=== PATIENT | male | born 1960 | race Caucasian/White ===

== ENCOUNTER 2016-10-04 10:31 | Emergency (ER) | payer OTHER ==
[~2016-10-04] VITALS: Ht 177.8 cm; Wt 147.7 kg
[~2016-10-04 10:31] MED LIST: ALBU90AE IH; FERR-83 PO; FLUN25SP NS; FLUT50DI IH; FURO40TA4 PO; LISI40TA PO; LOV30 SUBQ; MONT10TA23 PO; NORT10CA PO; POTA20TA16 PO; WARF1TAB6 PO
[2016-10-04 10:35] VITALS: BP 154/91; PULSE 90; RESP 20; O2SAT 99
--- NOTE | 2016-10-04 10:45 | ED.REPORT ---
HPI-Extremity Problem Lower Date of Service Oct 04, 2016 ED Provider: History of Present Illness: knot and pain started thursday on left lower leg , hot to touch, PE in lung and [facility]VT[facility] [place]. 12/20 pain, denies injury Nursing Notes Stated Complaint: LEFT LEG HAS A SWOLLEN KNOT, HOT Chief Complaint: General Complaint Nursing Notes Reviewed: Yes Allergies: Coded Allergies: No Known Allergies (Verified Allergy, Unknown, 05/16/16) Scheduled Enoxaparin (Lovenox) 30 Mg/0.3 Ml Syringe 30 MG SUBQ DAILY Ferrous Sulfate (Ferrous Sulfate) 325 Mg Tablet 325 MG PO DAILYWD Flunisolide (Flunisolide) 25 Ml [place] 25 ML NS BID Fluticasone Propionate (Flovent Diskus) 50 Mcg Disk.w.dev 1 PUFF IH BID Fluticasone Propionate (Flovent Diskus) 50 Mcg Disk.w.dev 1 PUFF IH BID Furosemide (Furosemide) 40 Mg Tablet 40 MG PO DAILY Lisinopril (Lisinopril) 40 Mg Tablet 40 MG PO DAILY Montelukast (Montelukast) 10 Mg Tablet 10 MG PO HS Nortriptyline (Nortriptyline) 10 Mg Capsule 10 MG PO HS Potassium Chloride (Potassium Chloride) 20 Meq Tab.er.prt 20 MEQ PO DAILY TAKE WITH FOOD Warfarin Sodium (Warfarin Sodium) 1 Mg Tablet 2 MG PO DIRECTED Warfarin Sodium (Warfarin Sodium) 1 Mg Tablet 1 MG PO DIRECTED Scheduled PRN Albuterol Sulfate (Proair Respiclick) 90 Mcg Aer.pow.ba 2 PUFFS IH 4-6HR PRN PRN For Shortness of Breath General Time Seen by MD: 10:44 Chief Complaint Leg injury left Hx Obtained From: Patient Onset Occurred: 3 days ago Past Medical History Past Medical History Notes: That for pulmonary embolism 10/04/2015, mentation complicated by septic shock, she was intubated in the see CDU CT angiogram at that visit revealed bilateral multilobar pulmonary emboli Seen in ED 11/15 INR supratherapeutic at 3.4, CT angio negative but was also suboptimal contrast administration. Patient empirically treated with Zithromax, blood cultures no growth to date. Past Medical History Pulmonary emboli, multilobar September 2015 (admission, complicated by septic shock) history DVT 2008 Obesity Hypertension History gastric bypass Anemia: Please note latter day blood product use) Past Surgical History Gastric bypass x2 Reports: Cholecystectomy, Inguinal hernia repair Smoking History Former Smoker (quit 20 years ago) Social History Alcohol Use: Denies alcohol use Drug Use: Denies drug use Occupation lives by self with 3 cats, works at [employer] 10/04/2016 Ambulatory Status Independent Review of Systems Basic Review of Systems Eyes: Vision NL, No discharge : No dysuria, No frequency Psychiatric: Normal thought content Physical Exam Initial Vital Signs Vital Signs (First) Date Time Temp Pulse Resp B/P Pulse Ox O2 Delivery O2 Flow Rate FiO2 10/04/16 10:35 36.9 90 20 154/91 99 Room Air Initial VS: Reviewed, Vital signs normal General/Constitutional: Well-developed, Well-nourished Head / Eyes: Atraumatic, Normocephalic, PERRL ENT: Mucous membranes moist, Conjunctiva normal, No scleral icterus Neck: Supple, Non-tender, Full range of motion Respiratory: Breath sounds normal, Clear to auscultation, No respiratory distress Cardiovascular: Regular rate & rhythm, Heart sounds normal, Intact distal pulses Abdomen / GI: Soft, Non-tender, No guarding, No rebound, No distention Back: No CVA tenderness Lymphatic: No lymphadenopathy Upper Extremities: Vascular intact, Neuro intact, No swelling, No tenderness Skin: Warm, Dry, No cyanosis Neurologic: Alert, Oriented, Nonfocal Psychiatric: Mood/affect normal, Behavior normal, Normal thought content Lower Extremity / Pelvis / MS: Atraumatic, Inspection NL, Full range of motion left lower leg has edema with erthyma that is warm to the touch General/Constitutional: Awake, Alert, No acute distress, Well appearing, Well developed, Well hydrated, Well nourished, Cooperative, Not toxic appearing Appearance / Presentation: Positive: Obese, morbidly Respiratory / Chest: Atraumatic, Breath sounds NL, Breath sounds = bilat, No respiratory distress, No rales, No rhonchi, No wheezing Cardiovascular: Heart rate NL, Regular rhythm, Heart sounds NL, No gallop Interpretation & Diagnostics Interpretation & Diagnostics: INDICATIONS: DVT in left leg, new sob on xaralteo ? failure TECHNIQUE: After the administration of intravenous contrast, 2 mm thick sections acquired from the pulmonary apices to the posterior costophrenic angles. 3-dimensional maximum intensity projection (MIP) coronal and sagittal reformats were then acquired through the thorax. For radiation dose reduction, the following was used: automated exposure control, adjustment of mA and/or kV according to patient size. COMPARISON: [facility], CT, CT ANGIO CHEST PE, 09/14/2015, 20:23. [facility], CT, CT ANGIO CHEST PE, 11/19/2015, 16:42. FINDINGS: Image quality: There is mild motion artifact. Pulmonary arteries: Pulmonary arteries are normal in size, and demonstrate no intraluminal filling defects to suggest central pulmonary embolism. Evaluation of distal branches slightly limited by motion artifact. Lungs and pleura: There is small 5 mm right lower lobe pulmonary nodule which appears unchanged compared to the prior studies. Mild dependent atelectasis is present bilaterally. There are also calcified nodules in the left lower lobe consistent with old granulomas. No pleural effusions or pneumothorax. Central and peripheral airways are patent. Mediastinum: Heart size is normal, without pericardial effusion. No mediastinal or hilar adenopathy by size criteria. There are calcified mediastinal and hilar lymph nodes consistent with old granulomatous disease. Thoracic aorta is normal in caliber and enhancement. Esophagus is normal in caliber, with a small hiatal hernia. Bones and chest wall: No suspicious bony lesions. Ribs and thoracic spine appear intact throughout. Thyroid gland is partially visualized. No axillary or supraclavicular adenopathy. Abdomen: Visualized upper abdomen demonstrates numerous splenic calcifications consistent with old granulomatous disease. The gallbladder is surgically absent. There is atrophy of the pancreas. IMPRESSION: 1. No evidence of central pulmonary embolism. 2. Sequelae of old granulomatous disease as described. 3. Small 5 mm right lower lobe pulmonary nodule is stable compared to prior studies dating back to 09/14/15. Consider followup in 12 months to demonstrate 2 year stability. Dictated by: Román Tim M.D. on 10/04/2016 at 13:25 Approved by: Román Tim M.D. on 10/04/2016 at 13:30 Lab Results Interpretation Result Diagram: 10/04/16 1115 10/04/16 1115 Test 10/04/16 11:15 White Blood Count 7.7th/mm3 (3.8-10.1) Red Blood Count 4.69mil/mm3 (4.40-5.80) Hemoglobin 14.7g/dL (13.8-17.2) Hematocrit 43.9% (41.0-50.0) Mean Corpuscular Volume 93.6fL (81-100) Mean Corpuscular Hemoglobin 31.3pg (27.0-35.0) Mean Corpuscular Hemoglobin Concent 33.5% (32.0-37.0) Red Cell Distribution Width 13.5% (12.3-15.4) Platelet Count 277bil/L (150-400) Neutrophils (%) (Auto) 65.6% (40-74) Lymphocytes (%) (Auto) 19.0% (14-46) Monocytes (%) (Auto) 11.8% (4-12) Eosinophils (%) (Auto) 3.1% (0-5) Basophils (%) (Auto) 0.4% (0-3) Sodium Level 137mEq/L (134-144) Potassium Level 4.5mEq/L (3.5-5.2) Chloride Level 101mEq/L (97-108) Carbon Dioxide Level 22mmol/L (18-29) Blood Urea Nitrogen 22mg/dL (6-24) Creatinine 0.92mg/dL (0.76-1.27) Estimat Glomerular Filtration Rate 91mL/min (>59) Glucose Level 106mg/dL (60-99) Lactic Acid Level 1.6mmol/L (0.4-2.0) Calcium Level 9.3mg/dL (8.5-10.1) Total Bilirubin 0.6mg/dL (0.0-1.2) Aspartate Amino Transf (AST/SGOT) 19U/L (0-50) Alanine Aminotransferase (ALT/SGPT) 14U/L (0-44) Alkaline Phosphatase 97U/L (25-150) Total Protein 7.1g/dL (6.4-8.4) Albumin 4.1g/dL (3.4-5.0) X-Ray Interpretation Xray Interpretation: INDICATIONS: swelling and pain TECHNIQUE: 2 views of the tibia and fibula were acquired. COMPARISON: None. FINDINGS: Bones: No fractures or dislocations. No bony erosions or periosteal reaction. Limited evaluation of the knee demonstrates apparent severe joint space narrowing in the medial compartment. Soft tissues: There are a few small corticated calcifications within the pretibial soft tissues which are nonspecific and likely represent dystrophic calcifications or phleboliths. IMPRESSION: 1. No evidence of fracture or dislocation. 2. Probable severe joint space narrowing in the right knee which is incompletely evaluated. US Soft Tissue/Musculoskeletal PROCEDURE: US VEINOUS LEG DUPLEX UNILATERAL, LEFT INDICATIONS: Left leg swelling and pain. TECHNIQUE: Real-time imaging, as well as color and pulse Doppler interrogation, were performed of the lower extremity deep veins from the inguinal ligament to the popliteal fossa. COMPARISON: None. FINDINGS: The left popliteal vein is noncompressible but there is flow demonstrated on Doppler interrogation. Findings are compatible of nonocclusive thrombus. The left calf vessels were not visualized. IMPRESSION: 1. Nonocclusive thrombus demonstrated in the popliteal vein. Findings discussed with Katerine Perry on 10/04/16 at 2:55 PM. Dictated by: Román Tim M.D. on 10/04/2016 at 14:50 Approved by: Román Tim M.D. on 10/04/2016 at 15:03 Re-Eval/Medical Decision Med Decision/Clinical Course 56 year old male presents for evualation of erthyma and swelling to left lower leg of 3 days duration. Patient reports hx of multiple episodes of cellulitis previously. Patient hospitalized last year for 1 month with bilateral PE complicated with sepis. Patient intially present for swelling on leg. US initially showedan occulsive clot but on additional images, it does show blood flow. Patient questioned as to if he was having sob. Patient states yes. Chest CT angio shows veins are clear. Patient given rocephin in ER, taken off work for 1 week. No sign of fracture or abscess Discharge & Departure Impression: Primary Impression: Cellulitis Site of cellulitis of extremity: lower extremity Laterality: left Disposition: Home Patient Instructions: Cellulitis (ED), Rivaroxaban (By mouth) Additional Instructions: The x-ray of your leg is normal. The ultrasound shows that popliteal vein does have a clot in but blood flow is getting around it. You are already on xeralteo. Your labs are normal. Discuss with primary care if you want to return to coumadin. Need to keep the leg elevated above the level of your heart. Up only for appointment with Dr. Asif and to eat and bathroom use. You received a dose of antibiotics in the ER. Continue with them at home. Bactrim in the am and pm for 7 days. Keflex 500mg 3 times a day for 7 days. REturn to the ER if the redness goes outside the leg by more than [address] indicates your lungs are clear, no sign of PE. Note for work provided. Off work this week. Referrals: Mariusz Rivera DO EDSupervising Provider for APC: Juan Geiger MD copies to: Mariusz Rivera Sue ARNP Oct 04, 2016 10:45
[2016-10-04] MEDS ORDERED: cefTRIAXone Inj 2,000 MG in Dextrose 5% Minibag Plus 50 ML IV ONE (10:55)
[2016-10-04] MEDS ORDERED: 0.9% Sodium Chloride 1,000 ML IV ONE (10:55)
[2016-10-04 11:50] LABS: BASOPHILS % (AUTO) 0.4 % (0-3); EOSINOPHILS % (AUTO) 3.1 % (0-5); MONOCYTES % (AUTO) 11.8 % (4-12); Mean Corpuscular Hemoglobin 31.3 pg (27.0-35.0); Mean Corpuscular Volume 93.6 fL (81-100); NEUTROPHILS % (AUTO) 65.6 % (40-74); Platelet Count 277 bil/L (150-400)
--- NOTE | 2016-10-04 11:58 | DRSVH ---
PROCEDURE: X-RAY LEFT TIBIA/FIBULA, TWO VIEWS ([id number]) INDICATIONS: swelling and pain TECHNIQUE: 2 views of the tibia and fibula were acquired. COMPARISON: None. FINDINGS: Bones: No fractures or dislocations. No bony erosions or periosteal reaction. Limited evaluation o f the knee demonstrates apparent severe joint space narrowing in the medial compartment. Soft tissues: There are a few small corticated calcifications within the pretibial soft tissues which are nonspecific and likely represent dystrophic calcifications or phleboliths. IMPRESSION: 1. No evidence of fracture or dislocation. 2. Probable severe joint space narrowing in the right knee which is incompletely evaluated. Dictated by: Román Tim M.D. on 10/04/2016 at 11:50 Approved by: Román Tim M.D. on 10/04/2016 at 11:52
[2016-10-04 13:00] VITALS: BP 138/89; PULSE 81; RESP 20; O2SAT 99
--- NOTE | 2016-10-04 13:32 | DRSVH ---
PROCEDURE: CT ANGIO CHEST PULMONARY EMBOLISM ([id number]) INDICATIONS: DVT in left leg, new sob on xaralteo ? failure TECHNIQUE: After the administration of intravenous contrast, 2 mm thick sections acquired from the pulmonary api stuart to the posterior costophrenic angles. 3-dimensional maximum intensity projection (MIP) coronal a nd sagittal reformats were then acquired through the thorax. For radiation dose reduction, the follo wing was used: automated exposure control, adjustment of mA and/or kV according to patient size. COMPARISON: [facility], CT, CT ANGIO CHEST PE, 09/14/2015, 20:23. [facility] , CT, CT ANGIO CHEST PE, 11/19/2015, 16:42. FINDINGS: Image quality: There is mild motion artifact. Pulmonary arteries: Pulmonary arteries are normal in size, and demonstrate no intraluminal filling d efects to suggest central pulmonary embolism. Evaluation of distal branches slightly limited by mihai on artifact. Lungs and pleura: There is small 5 mm right lower lobe pulmonary nodule which appears unchanged [place] red to the prior studies. Mild dependent atelectasis is present bilaterally. There are also calcifi ed nodules in the left lower lobe consistent with old granulomas. No pleural effusions or pneumothor ax. Central and peripheral airways are patent. Mediastinum: Heart size is normal, without pericardial effusion. No mediastinal or hilar adenopathy by size criteria. There are calcified mediastinal and hilar lymph nodes consistent with old granulo matous disease. Thoracic aorta is normal in caliber and enhancement. Esophagus is normal in caliber, with a small hiatal hernia. Bones and chest wall: No suspicious bony lesions. Ribs and thoracic spine appear intact throughout. Thyroid gland is partially visualized. No axillary or supraclavicular adenopathy. Abdomen: Visualized upper abdomen demonstrates numerous splenic calcifications consistent with old g ranulomatous disease. The gallbladder is surgically absent. There is atrophy of the pancreas. IMPRESSION: 1. No evidence of central pulmonary embolism. 2. Sequelae of old granulomatous disease as described. 3. Small 5 mm right lower lobe pulmonary nodule is stable compared to prior studies dating back to . Consider followup in 12 months to demonstrate 2 year stability. Dictated by: Román Tim M.D. on 10/04/2016 at 13:25 Approved by: Román Tim M.D. on 10/04/2016 at 13:30
--- NOTE | 2016-10-04 15:05 | DRSVH ---
PROCEDURE: US VEINOUS LEG DUPLEX UNILATERAL, LEFT INDICATIONS: Left leg swelling and pain. TECHNIQUE: Real-time imaging, as well as color and pulse Doppler interrogation, were performed of the lower extr emity deep veins from the inguinal ligament to the popliteal fossa. COMPARISON: None. FINDINGS: The left popliteal vein is noncompressible but there is flow demonstrated on Doppler interrogation. Findings are compatible of nonocclusive thrombus. The left calf vessels were not visualized. IMPRESSION: 1. Nonocclusive thrombus demonstrated in the popliteal vein. Findings discussed with Katerine Perry on 10/04/16 at 2:55 PM. Dictated by: Román Tim M.D. on 10/04/2016 at 14:50 Approved by: Román Tim M.D. on 10/04/2016 at 15:03
[2016-10-06] MEDS ORDERED: RIVA20TA PO (15:28)
[2016-10-06] MEDS ORDERED: FLUT12AE10 IH (15:28)
[2016-10-06] MEDS ORDERED: PANTOPRAZOLE PO (15:28)
[2016-10-06] MEDS ORDERED: PANT40TA3 PO (15:29)
[2016-10-06] MEDS ORDERED: LOV30 SUBQ (16:49)
[2016-10-06] MEDS ORDERED: OXYC5TAB72 PO (16:49)
[2016-10-06] MEDS ORDERED: ENOX150D SUBQ (16:49)
[2016-10-09] MEDS ORDERED: WARF1TAB6 PO (15:40)
== END 2016-10-04 14:59 | disposition home or self-care (01) ==
LOC: SED 10:31
DX: L03.116 Cellulitis of left lower limb (principal); I10 Essential (primary) hypertension; E66.9 Obesity, unspecified; Z86.718 Personal history of other venous thrombosis and embolism; Z98.84 Bariatric surgery status; Z68.42 Body mass index [BMI] 45.0-49.9, adult; Z86.711 Personal history of pulmonary embolism; Z87.891 Personal history of nicotine dependence; Z79.01 Long term (current) use of anticoagulants
CPT/HCPCS: 36415; 71275; 73590; 80053; 83605; 85025; 87040; 93970; 96361; 96365; 96372; 99285; J0696; J1885; J7030; Q9967

== ENCOUNTER → 2017-03-03 | Day surgery (SDC) | payer OTHER ==
[~2017-03-03] VITALS: Ht 175.3 cm; Wt 163.3 kg
[~2017-03-03] MED LIST changes: +ACET1TAB42 PO; +ALBU18HF INH; -ALBU90AE IH; +ENOX150D SUBQ; +FLUT12AE10 IH; -FLUT50DI IH; -LOV30 SUBQ; +OXYC5TAB72 PO; +PANT40TA3 PO; +Propofol 10,000 mCg/mL 20 mL Inj ONE
[2017-03-03 08:53] VITALS: BP 128/71; PULSE 79; RESP 14; O2SAT 98
--- NOTE | 2017-03-03 08:58 | PCM.HPANE ---
Patient Data Surgeon Admitting Provider: Attending Provider:Mariusz Livingston MD Primary Care Physician:Mila Loera MD Other Provider:Stef Diaz Anesthesia Reason for Visit Rectal Bleeding Ht/WT & BMI Body Mass Index Allergies Coded Allergies: No Known Allergies (Verified Allergy, Unknown, 03/03/17) Past Anesthesia History Anesthesia History: Denies:: Abnormal Airway, Anesthesia Reactions, Difficult Intubation, Fam Anesthesia Reaction, Fam Malignant Hypertherm, Malignant Hyperthermia Diabetes History Hx Diabetes?: No MRSA MRSA: No Medications Blood Thinner: Coumadin Active Scripts Ferrous Sulfate 325 Mg [id number] Mg PO DAILYWD 30 Days Ref 0 Prov:Pili Horta DO 10/04/15 Reported Medications Enoxaparin Sodium (Lovenox)150 Mg/1 Ml [id number] Mg SUBQ Q12 Ref 0 03/03/17 Albuterol Sulfate (Ventolin HFA Inhaler)200 Puff/18 Gm Inhaler2 Puff INH Q4 PRN For Wheezing #1 INHALER Ref 0 02/27/17 Acetaminophen/Codeine 300-30mg 1 Each Tablet1 Tablet PO TID PRN Pain Ref 0 02/27/17 oxyCODONE 5 Mg Tablet5-10 Mg PO Q6HRS PRN For Pain Ref 0 10/06/[address] 40 Mg Tablet.dr40 Mg PO BID Ref 0 10/06/16 Fluticasone Propionate (Flovent HFA 220 mcg)12 Gm Aer.w.adap1 Puff IH BID Ref 0 10/06/16 Nortriptyline 10 Mg Wskcnfo95 Mg PO HS 05/15/16 Montelukast 10 Mg Qzhjhv24 Mg PO HS Ref 0 05/15/16 Lisinopril 40 Mg Eqigmv43 Mg PO DAILY 30 Days Ref 0 05/15/16 Flunisolide 25 Ml Spray25 Ml NS PRN PRN For Congestion 02/18/16 Warfarin Sodium 1 Mg Tablet2 Mg PO DAILY Ref 0 02/18/16 Furosemide 40 Mg Etuxxu08 Mg PO DAILY 02/18/16 Potassium Chloride 20 Meq Tab.er.prt20 Meq PO DAILY Ref 0 TAKE WITH FOOD 02/18/16 Discontinued Reported Medications Albuterol Sulfate (Proair Respiclick)90 Mcg Aer.pow.ba2 Puffs IH 4-6HR PRN For Shortness of Breath 02/18/16 History History of ENT Problems?: Yes HEENT History: Positive for:: Sinus Problem Denies:: Abnormal Airway Cataracts Difficult Intubation Dysphagia Hearing Problem Denture Type: None Teeth Condition: Within Normal Limits Hx of Heart Problems?: Yes Cardiovascular History: Positive for:: Edema (VENOUS INSUFICIENCY) Hypertension Irregular Heartbeat Denies:: Cardiac Surgery Chest Pain Congestive Heart Failure Heart Murmur Pacemaker Thrombophlebitis Other History/Comments on coumadin For DVT PE Hx of Respiratory Problem?: Yes Respiratory History: Positive for:: Dyspnea Pneumonia Denies:: Asthma COPD Chest Surgery Emphysema Hemoptysis Tuberculosis Other History/Comment ROS negative Hx Neurologic Problems?: No Neurological History: Denies:: Alzheimer's Disease CVA Dementia Dizziness Headaches Parkinson's Disease Seizures Hx of GI Problems?: No Other History/Comment Rectal bleeding Hx of Problems?: Yes Genitourinary History: Positive for:: Urinary Tract Infection Denies:: HX of Hemodialysis Kidney Stones HX of Peritoneal Dialysis: No Male Hx: Denies:: Prostate Problems Scrotal Mass Testicular Surgery Hx Musculoskeletal Problems?: No Musculoskeletal History: Positive for:: Joint Replacement (RIGHT HIP ) Denies:: Back Injury Musculoskeletal Trauma Hx of Psycho/Social Problems?: No Psycho Social History: Denies:: Anxiety Bipolar Disorder Hx Depression Suicide Attempt Hx Surgeries?: Yes (GATRIC BYPASS 1993, BODY LIFT 2009,RIGHT HIP 2012) Hx Any Other Health Problems?: Yes Other History: Positive for:: Hospitalization Denies:: Cancer Endocrine Disease Thyroid Disease History Blood Transfusions: Denies:: Blood Transfuse Reaction Blood Transfusions (Jehova's witness) Hx Diabetes: No Hx Alcohol Use: NoHx Substance Use: No Smoking Status: Former Smoker Have You Smoked inLast 12 mo: No (quit 15 years ago) Stop/Bang Treated for Sleep Apnea?: Yes Do You Have a CPAP Machine?: Yes Risk Assessment Category Category 1A: Patient has history of documented sleep apnea, and HAS NOT received any narcotic, sedative or anesthesia administration during this stay. Category 1B: Patient has history of documented sleep apnea, and HAS received any narcotic , sedative or anesthesia administration during this stay Category 2: Patient has SUSPECTED Obstructive Sleep Apnea, and HAS received any narcotic , sedative or anesthesia administration during this stay. Category 3: Patient has SUSPECTED Obstructive Sleep Apnea and HAS NOT received narcotic, sedative or anesthesia administration during this stay. Category 4: Outpatient in Procedural Areas with known sleep apnea or who screen positive for High Risk via the STOP/BANG questionnaire. Exam Exam Vital Signs Vital Signs Date Time Temp Pulse Resp B/P Pulse Ox O2 Delivery O2 Flow Rate FiO2 03/03/17 08:53 36.4 79 14 128/71 98 Room Air General Appearance: Alert, Oriented X3, Cooperative, No Acute Distress HEENT/AIRWAY: MP 2 Lungs: Clear to Auscultation, Normal Air Movement Heart: Exam Unremarkable, Regular Rate/Rhythm, No Murmurs/Rubs/Gallops Plan Impression Patient chart reviewed, patient interviewed and anesthestic plan with risks, benefits, and alternatives discussed, and informed consent obtained. ASA Physical Status: ASA3 Severe Disease Anesthetic Plan: GA Bene/Risks/Altern/Consents: Yes HP Complete Prior to Induction: Yes Mariusz Hidalgo MD Mar 03, 2017 08:58
[2017-03-03] MEDS: Lactated Ringer's 1,000 ML IV ONE ×2 (09:40→09:45)
[2017-03-03 09:52] VITALS: BP 137/88; PULSE 87; RESP 16; O2SAT 99
--- NOTE | 2017-03-03 09:59 | ENDO ---
[address] [address] ENDOSCOPY PROCEDURE PATIENT: MARY CAMPOS : 1960 MR#: [id number] ADMIT: 03/03/2017 JOB ID: [id number] DATE OF SERVICE: 03/03/2017 TYPE OF OPERATION: Colonoscopy. PREOPERATIVE DIAGNOSIS(ES): Rectal bleeding. POSTOPERATIVE DIAGNOSIS(ES): Small internal hemorrhoids. ANESTHESIA: Monitored anesthesia care. COMPLICATIONS: None. BLOOD LOSS: None. DESCRIPTION OF PROCEDURE: After risks and benefits the patient informed consent was obtained. After anesthesia administered, colonoscope was inserted from the rectum to the cecum. Mucosa carefully examined. Prep of the patient was fair. After the procedure was done, scope withdrawn, and procedure terminated. FINDINGS: Upon inspection of the anus, no masses, hemorrhoids, ulcers, fissures that were seen throughout the entire examination. There were no polyps, masses, or lesions. No overt signs of bleeding were seen. Retroflexion showed small internal hemorrhoids. IMPRESSION: Small internal hemorrhoids. RECOMMENDATION: High-fiber diet. Stool softener as needed. Repeat colonoscopy 10 years for colorectal cancer screening. Okay to restart Coumadin today.
[2017-03-03 10:02] VITALS: BP 132/98; PULSE 74; RESP 16; O2SAT 100
--- NOTE | 2017-03-03 10:06 | PCM.ANEP1 ---
Post Anesthesia PACU Phase 1 Assessment Vital Signs Vital Signs Date Time Temp Pulse Resp B/P Pulse Ox O2 Delivery O2 Flow Rate FiO2 03/03/17 09:52 87 16 137/88 99 Room Air 03/03/17 08:53 36.4 79 14 128/71 98 Room Air Anesthetic Administered: GA Level of Alertness: Awake, talking SERRATO's with Equal Strength: No Pain: No Nausea or Vomiting: No CV Function & Hydration Stable: Yes Airway Device: Oxygen Delivery: Nasal Cannula Lungs: Clear to Auscultation, Normal Air Movement Dermatome Level: Full Sensation PACU Phase 2 Assessment Complications: No Follow up Care: No Patient Instructions Provided: N/A Mariusz Hidalgo MD Mar 03, 2017 10:06
[2017-03-03 10:10] VITALS: BP 137/81; PULSE 86; RESP 15; O2SAT 99
== END | disposition home or self-care (01) ==
LOC: END 02:21
PROVIDERS: ATTEND Internal Medicine Gastroenterology
DX: K62.5 Hemorrhage of anus and rectum (principal); K64.8 Other hemorrhoids; I10 Essential (primary) hypertension; G47.33 Obstructive sleep apnea (adult) (pediatric); Z86.711 Personal history of pulmonary embolism; Z79.01 Long term (current) use of anticoagulants; Z98.84 Bariatric surgery status
CPT/HCPCS: 45378; J2704; J7120